=== PATIENT | female | born 1995 | race Caucasian/White ===

== ENCOUNTER 2020-10-27 17:45 | Emergency (ER) | payer SELFPAY ==
[2020-10-27 18:00] VITALS: BP 148/94; PULSE 83; RESP 16; TEMP 36.9; O2SAT 100
--- NOTE | 2020-10-27 18:35 | ED.URI ---
HPI - URI/Sore Throat General Chief Complaint: Upper Respiratory Infection Stated Complaint: cold and allergies Time Seen by Provider: 10/27/20 18:15 Source: patient Mode of arrival: ambulatory Limitations: no limitations History of Present Illness HPI Narrative: Zuleyma Dumont is a 25 yo female with PMH of seasonal allergies who comes to [facility] with cold symptoms and sore throat. Has had symptoms for 1 day Related Data Allergies Allergy/AdvReac Type Severity Reaction Status Date / Time No Known Allergies Allergy Unknown Verified 10/27/20 18:15 Review of Systems Review of Systems: CONSTITUTIONAL: Denies fever, chills, sweats. EYES: Denies visual changes, redness, discharge. ENT: Denies rhinorrhea, has congestion, has sore throat, otalgia. CARDIOVASCULAR: Denies chest pain, palpitations, edema. RESPIRATORY: Denies dyspnea, wheezing, cough GASTROINTESTINAL: Denies abdominal pain, nausea, vomiting, diarrhea. GENITOURINARY: Denies dysuria, hematuria, abnormal discharge SKIN: Denies rash or itching. NEUROLOGIC: Denies numbness, or focal weakness. PSYCHIATRIC: Denies anxiety or depression. PMFSH Past Medical History Medical History Seasonal allergies Family History Family History Mother Patient's mother is in good health Father Patient's father is in good health Grandparent Family history of alcoholism Other Diabetes mellitus Social History Social History Smoking status: Former smoker Smoking end date: 03/12/14 Comments At time of signature, I agree with nursing past medical, surgical, social and family history. There is no relevant family history pertinent to the presenting complaint. Patient's blood pressure is elevated and [facility] she is ill and she has a PCP she will follow up with Exam Narrative: GENERAL: This is a well-nourished, well-developed patient, in mild distress. HEAD: normocephalic, atraumatic. EYES: Sclera clear/white. Vision is grossly intact. EARS: External ears normal, auditory canals erythema and without drainage, TMs bulging without perforation. Hearing grossly intact. NOSE: External nose normal without nasal discharge, nares without redness, no rhinorrhea. THROAT: Mucous membranes moist, posterior pharynx erythema with with exudate NECK: Neck supple, non-tender CARDIOVASCULAR: Regular rate and rhythm without murmurs, gallops, or rubs. RESPIRATORY: Clear to auscultation. Breath sounds equal bilaterally. No wheezes, rales, or rhonchi. GASTROINTESTINAL: Abdomen soft, non-tender, SKIN: warm, intact with no suspicious lesions or rash, good texture and turgor. NEURO: awake, alert, and oriented to person, place and time. There were no obvious focal neurologic abnormalities. Steady gait EXTREMITIES: Normal range of motion. BACK: Nontender without deformity Course Course Emergency Course: Patient comes to [facility] with seasonal allergies and sore throat Strep test is positive Started on amoxicillin 875 twice daily and Zyrtec and discussed Covid vaccination Vital Signs Vital signs: Vital Signs Temperature 98.4 F 10/27/20 18:00 Pulse Rate 83 10/27/20 18:00 Respiratory Rate 16 10/27/20 18:00 Blood Pressure 148/94 H 10/27/20 18:00 Pulse Oximetry 100 10/27/20 18:00 Temperature 98.4 F 10/27/20 18:00 Pulse Rate 83 10/27/20 18:00 Respiratory Rate 16 10/27/20 18:00 Blood Pressure 148/94 H 10/27/20 18:00 Pulse Oximetry 100 10/27/20 18:00 MDM - URI/Sore Throat Differential Diagnosis Differential diagnosis: Likely upper respiratory infection, sinusitis, viral infection, bronchitis, pharyngitis and other Lab Data Labs: Lab Results 10/27/20 Range/Units 18:07 POC SARS CoV-2 Ag Negative (Negative) Strep Screen Positive Group A Strep
== END 2020-10-27 18:48 | disposition home or self-care (01) ==
PROVIDERS: Emergency Provider Nurse Practitioner; PCP Nurse Practitioner Family
DX: J02.0 Streptococcal pharyngitis (principal); Z20.822 Contact with and (suspected) exposure to COVID-19; Z87.891 Personal history of nicotine dependence
CPT/HCPCS: 87426; 87880; 99213; C9803; G0463

== ENCOUNTER 2020-12-02 10:52 | Emergency (ER) | payer SELFPAY ==
[2020-12-02 10:55] VITALS: BP 144/99; PULSE 79; RESP 18; TEMP 36.9; O2SAT 98
--- NOTE | 2020-12-02 10:57 | ED.URI ---
HPI - URI/Sore Throat General Chief Complaint: Upper Respiratory Infection Stated Complaint: nose runny sore throat cough Time Seen by Provider: 12/02/20 10:57 Source: patient and RN notes reviewed History of Present Illness HPI Narrative: Patient is a 25-year-old female who presents the urgent care with complaints of runny nose, sore throat and cough for 2 days. Patient states that she has been taking Benadryl and Tylenol. Patient denies of any known exposure to strep or Covid however she did have strep approximately 1 month ago. Patient has not had the Covid vaccine. Denies of any fever, chills, nausea, vomiting. No other acute complaints. No acute distress noted. Patient aware of the plan of care. Some parts of this dictation were generated by voice recognition software and may contain typographical and/or grammatical inaccuracies. Related Data Allergies Allergy/AdvReac Type Severity Reaction Status Date / Time No Known Allergies Allergy Unknown Verified 12/02/20 10:57 Review of Systems Review of Systems: CONSTITUTIONAL: Denies fever, chills, or sweats. EYES: Denies visual changes, redness, or discharge. ENT: Reports of rhinorrhea, drainage, sore throat CARDIOVASCULAR: Denies chest pain, palpitations, or edema. RESPIRATORY: Reports of cough without dyspnea GASTROINTESTINAL: Denies abdominal pain, nausea, vomiting, or diarrhea. GENITOURINARY: Denies dysuria or hematuria. SKIN: Denies rash or itching. MUSCULOSKELETAL: Denies back pain, joint pain, or myalgia. NEUROLOGIC: Denies headache, numbness, or weakness. All other systems reviewed are negative, except as documented in HPI. [facility] Past Medical History Medical History Seasonal allergies Family History Family History Mother Patient's mother is in good health Father Patient's father is in good health Grandparent Family history of alcoholism Other Diabetes mellitus Social History Social History Smoking status: Former smoker Smoking end date: 03/12/14 Comments At the time of my signature, I reviewed and agree with the nursing past medical, surgical, social, and family history. There is no relevant family history pertinent to the patient complaint. Exam Narrative: GENERAL: This is a well-nourished, well-developed patient, in no apparent distress. HEAD: normocephalic, atraumatic. EYES: PERRL. Sclera clear/white. Vision is grossly intact. EARS: External ears normal, auditory canals clear and without drainage, TMs normal without perforation. Hearing grossly intact. NOSE: External nose normal with no obvious nasal discharge, nares without redness, no rhinorrhea. THROAT: Mucous membranes moist, mild erythema noted posterior oropharynx with moderate postnasal drainage and mild bilateral tonsillar edema without exudate NECK: Neck supple, mild bilateral submandibular lymphadenopathy CARDIOVASCULAR: Regular rate and rhythm without murmurs, gallops, or rubs. RESPIRATORY: Clear to auscultation. Breath sounds equal bilaterally. No wheezes, rales, or rhonchi. SKIN: warm, intact with no suspicious lesions or rash, good texture and turgor. NEURO: awake, alert, and oriented to person, place and time. There were no obvious focal neurologic abnormalities. EXTREMITIES: No clubbing, cyanosis, or edema. Course Vital Signs Vital signs: Vital Signs Temperature 98.5 F 12/02/20 10:55 Pulse Rate 79 12/02/20 10:55 Respiratory Rate 18 12/02/20 10:55 Blood Pressure 144/99 H 12/02/20 10:55 Pulse Oximetry 98 12/02/20 10:55 Temperature 98.5 F 12/02/20 10:55 Pulse Rate 79 12/02/20 10:55 Respiratory Rate 18 12/02/20 10:55 Blood Pressure 144/99 H 12/02/20 10:55 Pulse Oximetry 98 12/02/20 10:55 Reviewed-patient is informed that they may have pre-hypertension or hypertension based on a blo
== END 2020-12-02 11:20 | disposition home or self-care (01) ==
PROVIDERS: Emergency Provider Nurse Practitioner Family
DX: J02.9 Acute pharyngitis, unspecified (principal)
CPT/HCPCS: 87081; 87880; 99213; G0463

== ENCOUNTER 2020-12-10 16:01 | Emergency (ER) | payer SELFPAY ==
[2020-12-10 16:17] VITALS: BP 147/92; PULSE 94; RESP 20; TEMP 37; O2SAT 99
--- NOTE | 2020-12-10 16:53 | ED.LOWEXIN ---
HPI - Extremity Injury (Lower) General Chief Complaint: Extremity Injury, Lower Stated Complaint: Dog Bite Source: patient Mode of arrival: ambulatory Limitations: no limitations History of Present Illness HPI Narrative: Patient is a 25-year-old female who presents complaining of dog bite to the right thigh. 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 She denies other injuries. She reports the dog is up-to-date on vaccinations. Unknown when last tetanus shot was. She denies significant medical history. She denies taking [id number] medications prior to arrival. Related Data Allergies Allergy/AdvReac Type Severity Reaction Status Date / Time No Known Allergies Allergy Unknown Verified 12/10/20 16:31 Review of Systems Review of Systems: CONSTITUTIONAL: Denies fever, chills, or sweats. EYES: Denies visual changes, redness, or discharge. ENT: Denies rhinorrhea, congestion, sore throat, or otalgia. CARDIOVASCULAR: Denies chest pain, palpitations, or edema. RESPIRATORY: Denies cough or dyspnea. GASTROINTESTINAL: Denies abdominal pain, nausea, vomiting, or diarrhea. GENITOURINARY: Denies dysuria or hematuria. SKIN: Dog bite to right thigh MUSCULOSKELETAL: Denies back pain, joint pain, or myalgia. NEUROLOGIC: Denies headache, numbness, dizziness, or weakness. PSYCHIATRIC: Denies anxiety or depression. PMFSH Past Medical History Medical History Seasonal allergies Family History Family History Mother Patient's mother is in good health Father Patient's father is in good health Grandparent Family history of alcoholism Other Diabetes mellitus Social History Social History Smoking status: Former smoker Smoking end date: 03/12/14 Comments At the time of signature, I have reviewed and agree with nursing past medical, surgical, social, and family history unless otherwise noted. Please see nursing chart for further information. There is no relevant family history pertinent to the presenting complaint. Exam Narrative: GENERAL: Well-appearing, well-nourished, and in no acute distress. HEAD: Normocephalic, atraumatic. EYES: EOMI. No redness or drainage. Conjunctiva are normal. ENT: Mucous membranes pink and moist. CHEST: No respiratory distress. HEART: Regular rate and rhythm. EXTREMITIES: Normal range of motion. No edema. SKIN: Area of ecchymosis and mild edema to right lateral thigh. Multiple small puncture wounds and abrasion. NEURO: No focal deficits. Alert and oriented x3. Gait steady. PSYCH: Normal affect. No signs of depression or anxiety. Course Vital Signs Vital signs: Vital Signs Temperature 37.0 C 12/10/20 16:17 Pulse Rate 94 12/10/20 16:17 Respiratory Rate 20 12/10/20 16:17 Blood Pressure 147/92 H 12/10/20 16:17 Pulse Oximetry 99 12/10/20 16:17 Temperature 37.0 C 12/10/20 16:17 Pulse Rate 94 12/10/20 16:17 Respiratory Rate 20 12/10/20 16:17 Blood Pressure 147/92 H 12/10/20 16:17 Pulse Oximetry 99 12/10/20 16:17 Reviewed-patient is informed that they may have pre-hypertension or hypertension based on a blood pressure reading. I recommend the patient call the primary care provider listed on their discharge instructions or a physician of their choice this week to arrange follow-up for further evaluation of possible pre-hypertension or hypertension. MDM - Extremity Injury (Lower) MDM Narrative Medical decision making narrative: Wound cleansed with [employer]. Discussed with patient starting antibiotics and update of tetanus shot. Patient agrees with plan of care. Patient is stable for discharge to home with outpatient follow-up as needed. Differential Diagnosis Differential diagnosis: Likely other (Laceration, puncture, abrasion, contusion) Critical Car
[2020-12-10] MEDS: TETANUS,DIPHTHERIA,AC PERTUSSIS ADULT (0.5 ML) BOOSTRIX IM (17:00)
== END 2020-12-10 17:20 | disposition home or self-care (01) ==
PROVIDERS: Emergency Provider Nurse Practitioner; PCP Nurse Practitioner Family
DX: S71.131A Puncture wound without foreign body, right thigh, initial encounter (principal); W54.0XXA Bitten by dog, initial encounter; Z23 Encounter for immunization; Z87.891 Personal history of nicotine dependence
CPT/HCPCS: 90471; 90715; 99213; G0463